=== PATIENT | male | born 2000 | race Caucasian/White ===

== ENCOUNTER 2020-12-25 11:06 | Day surgery (SDC) | payer OTHER ==
[~2020-12-25] VITALS: Ht 177.8 cm; Wt 104.2 kg
[~2020-12-25 11:06] MED LIST: LIDOCAINE 1% MDV 20ML VIAL SQ PRN; LIDOCAINE 2% 100MG/5ML SDV (FOR ANES.) As Ordered ONE; LR 1,000 ML IV ONE; MIDAZOLAM INJ 2MG/2ML VIAL (J2250 PER 1MG) As Ordered ONE; ONDANSETRON 4MG/2ML VIAL As Ordered ONE; ROCURONIUM BROMIDE 50 MG/5 ML VIAL As Ordered ONE; ceFAZolin SOD 2 GM in IV 1 EA IV ONE; dexameTHASONE 4 MG/ML 1ML VIAL (J1100 PER 1MG) As Ordered ONE; fentaNYL 250 MCG/5 ML INJECTION (J3010) As Ordered ONE; propofoL 200 MG/20 ML VIAL As Ordered ONE
[2020-12-25 11:38] LABS: HEMATOCRIT 48.3 % (42.0-52.0); HEMOGLOBIN 15.8 g/dl (13.5-17.5); MEAN CORPUSCULAR HEMOGLOBIN 28.3 pg (27.0-33.0); MEAN CORPUSCULAR HGB CONC 32.7 g/dl (32.0-36.5); MEAN CORPUSCULAR VOLUME 86.6 fl (80.0-96.0); PLATELET COUNT, AUTOMATED 266 10^3/uL (150-450); RED BLOOD COUNT 5.58 10^6/uL (4.30-6.10); WHITE BLOOD COUNT 6.8 10^3/uL (4.0-10.0)
[2020-12-25] MEDS ORDERED: BUPIVACAINE LIPOSOME/PF 1.3% 20ML VIAL (13.3MG/ML)(EXPAREL)(C9290 PER1MG) As Ordered ONE (14:25)
[2020-12-25] MEDS ORDERED: GENTAMICIN SULF 80MG/2ML VIAL As Ordered ONE (14:25)
[2020-12-25] MEDS ORDERED: ROCURONIUM BROMIDE 50 MG/5 ML VIAL As Ordered ONE ×2 (15:31→18:27)
[2020-12-25] MEDS ORDERED: ePHEDrine SULFATE 25 MG/5 ML(5MG/ML) SYRINGE As Ordered ONE (15:46)
[2020-12-25] MEDS ORDERED: ACETAMINOPHEN 1000MG 100ML IV BTL (OFIRMEV) (J0131 PER 10MG) As Ordered ONE (15:48)
[2020-12-25] MEDS ORDERED: HYDROmorphone HCL 2 MG/ML 1ML VIAL As Ordered ONE (15:48)
[2020-12-25] MEDS ORDERED: SUGAMMADEX SODIUM 500 MG/5 ML VIAL (BRIDION) As Ordered ONE ×2 (15:48→18:27)
--- NOTE | 2020-12-25 18:10 | POST-OPPD ---
Postoperative Procedure Note Date Of Procedure: Dec 25, 2020 PREOPERATIVE DIAGNOSIS: Panniculitis POSTOPERATIVE DIAGNOSIS: same PROCEDURE: Extended panniculectomy SURGEON: Dr Abarca ANESTHESIA: General ESTIMATED BLOOD LOSS: 150 cc FINDINGS: Pannus SPECIMENS: Pannus 1801 gm COMPLICATIONS: none REPLACED: none DRAINS: 10 mm ELROY x 2 POSTOPERATIVE CONDITION: stable CHACHA ABARCA DO Dec 25, 2020 18:10
--- NOTE | 2020-12-25 18:10 | ROOPDOC ---
[facility] Report Of Operation Report of Operation DATE OF PROCEDURE: 12/25/20 PREOPERATIVE DIAGNOSIS: Panniculitis POSTOPERATIVE DIAGNOSIS: same PROCEDURE: Extended panniculectomy SURGEON: Dr Abarca ANESTHESIA: General ESTIMATED BLOOD LOSS: 150 cc FINDINGS: Pannus SPECIMENS: Pannus 1801 gm COMPLICATIONS: none REPLACED: none DRAINS: 10 mm ELROY x 2 POSTOPERATIVE CONDITION: stable DESCRIPTION OF PROCEDURE: Procedure: This is a 20-year-old male status post significant weight loss. Patient is an active duty soldier. Patient has excessive pannus above and mostly below the umbilicus with large mons pubis ptosis. Patient is scheduled for extended panniculectomy. Risks benefits and alternatives discussed with the patient in de tails. Informed consent confirmed and preoperative holding area. Patient was marked in upright position. He was brought into the operating room, placed in supine position, preoperative antibiotics given, sequential stockings placed in the lower calves, and then general anesthesia is induced. Fully introduced in the bladder without any difficulties with yellow clear urine present. He was prepped and draped in the usual sterile fashion. Lower abdominal incision was designed 7 cm above the penis base. Incision carried out with 10 blade. Careful sharp dissection with electrocautery and peek cautery was done until the fascia of rectus muscle is identified. Rectus muscle is in very good condition no diathesis present. Vessels were identified throughout and either cauterized or suture ligated for hemostasis control. Infraumbilical flap was divided in the middle to aid the dissection. We continued our dissection until umbilicus was encountered. Rhomboid incision made around the umbilicus and dissection continued xiphoid process superiorly and costal edges laterally. Patient placed on placed in the reflex position and excess tissue was measured and scored. Then it was resected using electrocautery. Total weight of the pannus 1801 g. Careful hemostasis was assured. The wound is irrigated gentamicin irrigation. [place] Tisseel hemostatic agent applied thought the abdomen, 2 ml. 10 cc of Exparel infiltrated in the rectus muscle. Skin flaps were realigned and was started all closure with deep sutures of 0 Vicryl realigning the pubis and closing the lower abdominal incision. 3 mL Monocryl V lock suture used for subcutaneous closure followed by 3-0 Monocryl interrupted sutures as well. Two 10 mm [place]-Tanner drains were placed throughout lower abdominal incision. New opening was created for the umbilical stump using electrocautery. The umbilicus was brought into view and sutured in place with interrupted 3-Monocryl sutures and 5-0 plain gut sutures in the running fashion. Additional 10 cc of Exparel injected along the lower abdominal incision. Additional staplers were placed for appropriate protection of incision. Prinio dressing applied to lower abdominal incision, Xeroform to umbilicus, and bulky dressing throughout. Abdominal binder applied. Patient extubated in the operating room without any difficulties and transferred to recovery room in stable condition. CHACHA ABARCA DO Dec 25, 2020 18:10
[2020-12-25] MEDS ORDERED: MORPHINE 4 MG/ML 1ML VIAL/SYRINGE (J2270) IV PRN (18:15)
[2020-12-25] MEDS ORDERED: ONDANSETRON 4MG/2ML VIAL IV PRN ×2 (18:15→19:05)
[2020-12-25] MEDS ORDERED: ACETAMINOPHEN TAB 650MG DOSE (2X325MG) PO PRN (18:15)
[2020-12-25] MEDS ORDERED: KETOROLAC 60MG 2ML VIAL As Ordered ONE (18:27)
[2020-12-25] MEDS ORDERED: fentaNYL 100 MCG/2 ML INJECTION (J3010) As Ordered ONE (18:58)
[2020-12-25] MEDS ORDERED: LR 1,000 ML IV SCH (19:05)
[2020-12-25] MEDS ORDERED: oxyCODONE 5MG TAB PO PRN (19:05)
[2020-12-25] MEDS ORDERED: fentaNYL 100 MCG/2 ML INJECTION (J3010) IV PRN (19:05)
[2020-12-25 20:00] VITALS: BP 123/67
[2020-12-25 20:30] VITALS: BP 131/63
[2020-12-25 21:00] VITALS: BP 127/63
[2020-12-25 22:00] VITALS: BP 124/58
[2020-12-25] MEDS: ceFAZolin SOD 1 GM in D5W MINI-BAG PLUS 50 ML IV SCH (22:15)
[2020-12-25] MEDS: PERCOCET 5MG/325MG TAB PO PRN (22:15)
[2020-12-25 23:00] VITALS: BP 124/58
[2020-12-26] VITALS: BP 124/58
[2020-12-26] MEDS: PERCOCET 5MG/325MG TAB PO PRN ×3 (04:40→14:52)
[2020-12-26 06:00] VITALS: BP 121/56
[2020-12-26] MEDS: ceFAZolin SOD 1 GM in D5W MINI-BAG PLUS 50 ML IV SCH (06:38)
[2020-12-26] MEDS: LR 1,000 ML IV SCH ×2 (08:24→08:25)
[2020-12-26 10:00] VITALS: BP 106/50
--- NOTE | 2020-12-26 10:32 | IPNPDOC ---
Subjective General Date Seen: Dec 26, 2020 Subject Chief Complaint/History The patient is a 20-year-old male admitted with a reason for visit of Panniculitis. Patient status post extended panniculectomy postop day 1. He is doing well, ambulated to the bathroom. Pain controlled with Percocet. Tolerating regular diet. Current Medications Current Medications Current Medications Medications (Trade) Dose Ordered Sig/Santino Route PRN Reason Start Time Stop Time Status Last Admin Dose Admin Acetaminophen (Tylenol Tab) 650 mg Q6H PRN PO MILD PAIN (PS 1-4) 12/25/20 18:15 Cefazolin Sodium 1 gm/Dextrose 50 ml @ 100 mls/hr Q8H IV 12/25/20 23:00 12/26/20 06:38 Fentanyl Citrate (Sublimaze) 25 mcg Q5MP PRN IV PAIN LEVEL 8-10 12/25/20 19:05 12/25/20 21:05 DC 12/25/20 19:02 Lactated Ringer's 1,000 ml @ 75 mls/hr [id number] IV 12/25/20 18:15 12/26/20 08:25 Lactated Ringer's 1,000 ml @ 80 mls/hr [id number] IV 12/25/20 19:05 12/25/20 21:05 DC Lidocaine HCl (LIDOCAINE 1% MDV 20ml) 0.1 ml ONCE PRN SQ DISCOMFORT BEFORE IV START 12/25/20 06:00 Morphine Sulfate (Morphine Sulfate Inj) 4 mg Q4HP PRN IV SEVERE PAIN (PS 8-10) 12/25/20 18:15 Ondansetron HCl (ZOFRAN INJection) 4 mg Q4H PRN IV NAUSEA OR VOMITING 12/25/20 18:15 Ondansetron HCl (ZOFRAN INJection) 4 mg Q4HP PRN IV NAUSEA OR VOMITING 12/25/20 19:05 12/25/20 21:05 DC 12/25/20 19:21 Oxycodone HCl (Roxicodone, Oxyir) 5 mg ASDIRECTED PRN PO PAIN LEVEL 1-4 12/25/20 19:05 12/25/20 21:05 DC 12/25/20 19:21 Oxycodone/ Acetaminophen (Percocet 5mg/ 325mg Tablet) 2 tab Q4HP PRN PO MODERATE PAIN (PS 5-7) 12/25/20 18:15 12/26/20 04:40 Allergies Coded Allergies: No Known Allergies (Unverified , 12/18/20) Objective Physical Examination Examination GENERAL APPEARANCE:Patient seen, laying in bed, awake, alert, and oriented. Comfortable, in no acute distress. SKIN: Warm and moist. NECK: Supple, no thyromegaly. No obvious jugular venous distention. LUNGS: Clear to auscultation bilaterally. No wheezing appreciated. HEART: No chest wall abnormalities. Regular rate and rhythm with no murmurs appreciated. ABDOMEN: Abdomen is soft, non-tender, non-distended. Incision intact. Umbilicus viable. ELROY drains with serosanguinous drainage. 130R/85L cc/24 hr each drain. EXTREMITIES: No edema identified. No calf tenderness. Vital Signs Vital Signs Date Time Temp Pulse Resp B/P (MAP) Pulse Ox O2 Delivery O2 Flow Rate FiO2 12/26/20 06:00 98.8 64 20 121/56 (77) 98 Room Air 12/25/20 20:00 2.0 I&Os I&O- Last 24 Hours up to 6 AM 12/26/20 06:00 Intake Total 2650 ml Output Total 1543 ml Balance 1107 ml Laboratory Data Labs 24H Laboratory Tests 2 12/25/20 11:23: Nucleated Red Blood Cells % (auto) 0.0 CBC/BMP Laboratory Tests 12/25/20 11:23 Impression Status post extended panniculectomy postop day 1. Dressings changed today. Instructions given to the patient. Stable for discharge. Follow-up with plastic surgery after discharge. Plan / VTE VTE Prophylaxis Ordered?: Yes CHACHA ABARCA DO Dec 26, 2020 10:32
[2020-12-26] MEDS ORDERED: TRAM50TA2 PO (10:48)
[2020-12-26 14:00] VITALS: BP 120/66
== END 2020-12-26 15:25 | disposition home or self-care (01) ==
LOC: M SDC 11:06 → M MS5PR 19:45 → M SDC 12-26 15:25
PROVIDERS: ATTEND Plastic Surgery Surgery of the Hand
DX: M54.07 Panniculitis affecting regions of neck and back, lumbosacral region (principal)
CPT/HCPCS: 15830; 15847; 36415; 85027; 88300; 96365; 96366; C9290; J0131; J0690; J1100; J1170; J1580; J1885; J2250; J2405; J3010

== ENCOUNTER 2021-01-01 14:06 | Emergency (ER) | payer OTHER ==
[~2021-01-01] VITALS: Ht 177.8 cm; Wt 105.5 kg
[~2021-01-01 14:06] MED LIST changes: -LIDOCAINE 1% MDV 20ML VIAL SQ PRN; -LIDOCAINE 2% 100MG/5ML SDV (FOR ANES.) As Ordered ONE; -LR 1,000 ML IV ONE; -MIDAZOLAM INJ 2MG/2ML VIAL (J2250 PER 1MG) As Ordered ONE; -ONDANSETRON 4MG/2ML VIAL As Ordered ONE; -ROCURONIUM BROMIDE 50 MG/5 ML VIAL As Ordered ONE; +TRAM50TA2 PO; -ceFAZolin SOD 2 GM in IV 1 EA IV ONE; -dexameTHASONE 4 MG/ML 1ML VIAL (J1100 PER 1MG) As Ordered ONE; -fentaNYL 250 MCG/5 ML INJECTION (J3010) As Ordered ONE; -propofoL 200 MG/20 ML VIAL As Ordered ONE
[2021-01-01] MEDS ORDERED: PERCOCET 5MG/325MG TAB PO ONE (16:35)
[2021-01-01] MEDS ORDERED: traMADol 50 MG TAB PO ONE (16:45)
[2021-01-01 17:19] LABS: BASO % 0.1 % (0.0-1.0); EOS # 0.2 10^3/uL (0.0-0.5); HEMATOCRIT 39.3 % (42.0-52.0); HEMOGLOBIN 12.7 g/dl (13.5-17.5); LYMPH # 1.6 10^3/uL (1.5-5.0); LYMPH % 19.9 % (24.0-44.0); MEAN CORPUSCULAR HEMOGLOBIN 28.2 pg (27.0-33.0); MEAN CORPUSCULAR HGB CONC 32.3 g/dl (32.0-36.5); MEAN CORPUSCULAR VOLUME 87.3 fl (80.0-96.0); MONO # 0.7 10^3/uL (0.0-0.8); MONO % 8.6 % (2.0-8.0); NEUTROPHILS # 5.4 10^3/uL (1.5-8.5); NEUTROPHILS % 67.9 % (36.0-66.0); PLATELET COUNT, AUTOMATED 254 10^3/uL (150-450); WHITE BLOOD COUNT 7.9 10^3/uL (4.0-10.0)
--- OUTSIDE RECORDS SUMMARY | 2021-01-01 17:21 | CCD | Continuity of Care Document ---
Author Author Adolfo ABARCA CHACHA DO Organization Unknown Address [address] [place] [address] Phone [phone] Care Team Providers Care Inspectors And Regulatory Officers Name Role Phone Dominique Carrasco Avery DO AUTM Unavailable Maicol Scott M.D. AUTM Unavailable Pattie AUTM [phone] Problems Description No Information Available Social History Type Date Description Comments Sex Male ETOH Use Occasionally consumes alcohol Tobacco Use Start: Unknown Denies Smoking Smoking Status Reviewed: 10/24/20 Denies Smoking Allergies and adverse reactions Description No Known Drug Allergies Medications Description No Active Medications Immunizations Description No Information Available Vital Signs Date Vital Result Comment 12/31/2020 2:57pm BP Systolic 126 mmHg BP Diastolic 78 mmHg Heart Rate 84 /min Respiratory Rate 16 /min Body Temperature 97.2 F Height 70 inches 5'10" [place] Body Weight 166 lb 12/10/2020 12:58pm BP Systolic 140 mmHg BP Diastolic 90 mmHg Heart Rate 80 /min Respiratory Rate 14 /min Body Temperature 98.2 F Height 70 inches 5'10" Weight 236.00 lb BMI (Body Mass Index) 33.9 kg/m2 [place] Body Weight 166 lb Weight 107.050 kg BSA (Body Surface Area) 2.24 m2 Results Test Acquired Date Facility Test Result H/L Range Note Laboratory test finding 12/25/2020 [facility] Main Lab [address] [place] [address] [phone] Pathology Request For Service (SEE NOTE) 1 Complete Blood Count 12/25/2020 [facility] Main Lab [address] [place] [address] [phone] White Blood Count 6.8 10 Normal 4.0-10.0 Red Blood Count 5.58 10 Normal 4.30-6.10 Hemoglobin 15.8 g/dL Normal 13.5-17.5 Hematocrit 48.3 % Normal 42.0-52.0 Mean Corpuscular Volume 86.6 fl Normal 80.0-96.0 Mean Corpuscular Hemoglobin 28.3 pg Normal 27.0-33.0 Mean Corpuscular HGB Conc 32.7 g/dL Normal 32.0-36.5 Red Cell Distribution Width 12.7 % Normal 11.5-14.5 Platelet Count, Automated 266 10 Normal 150-450 Nucleated Red Blood Cell % 0.0 % Normal 0-0 1 FINAL DIAGNOSIS Pannus (1801 grams), panniculectomy: Benign skin and adipose tissue (gross examination only). 12/27/2020 - 811 CLINICAL DIAGNOSIS Panniculitis 12/26/20201400 GROSS DIAGNOSIS Received in formalin labeled "pannus (right, left, midline and umbilical tissue) total weight 1,801 grams" and consists of fragments of skin with adipose tissue 32 x 30 x 8 cm. For gross only. -OA 12/26/2020 - 1400 Signed SALLY MALIK MD 12/27/2020 0813 Procedures Date Code Description Status 12/25/2020 33837 Excision Excessive Skin And Subc utaneous Tissue Abdomen Completed 10/24/2020 08508 Office/Outpatient New Moderate M DM 45-59 Minutes Completed Medical Devices Description No Information Available Encounters Type Date Location Provider Dx Diagnosis Office Visit 10/24/2020 9:15a [facility] Chacha Abarca, DO M54.07 Panniculitis affecting regions of neck/bk, lumbosacr region L98.7 Excessive and redundant skin and subcutaneous tissue Assessments Date Code Description Provider 12/31/2020 L98.7 Excessive and redundant skin and subcutaneous tissue Chacha Philip, DO 12/31/2020 M54.07 Panniculitis affecti ng regions of neck and back, lumbosacral region Chacha Philip, DO 12/25/2020 L98.7 Excessive and redundant skin and subcutaneous tissue Chacha Philip, DO 12/25/2020 M54.07 Panniculitis affecti ng regions of neck and back, lumbosacral region Chacha Philip, DO 12/10/2020 M54.07 Panniculitis affecti ng regions of neck and back, lumbosacral region Chacha Abarca, DO 12/10/2020 L98.7 Excessive and redundant skin and subcutaneous tissue Chacha Abarca, DO 12/10/2020 Z01.818 Encounter for other preprocedura l examination Chacha Abarca, DO 10/24/2020 M54.07 Panniculitis affecti ng regions of neck and back, lumbosacral region Chacha Abarca, DO 10/24/2020 L98.7 Excessive and redundant skin and subcutaneous tissue Chacha Abarca, DO Plan of Treatment Future Appointment(s):* 01/02/2021 11:15 am - Chacha Abarca DO at [facility] Functional Status Description No Information Available Mental Status Description No Information Available Referrals Refer to Dr Reason for Referral Status Appt Date Chacha Abarca D.O. PANNICULECTOMY Scheduled 10/24/2020 [facility] [address] [place] [address], [place] [address] [phone]
--- OUTSIDE RECORDS SUMMARY | 2021-01-01 17:21 | CCD | Continuity of Care Document ---
Author Author Adolfo ABARCA DO Organization Unknown Address [address] [place] [address] Phone [phone] Care Team Providers Care Pedicurist Name Role Phone Luna Dominique Avery MORENO AUTM Unavailable Maicol Scott MD Unavailable Problems Description No Information Available Social History Type Date Description Comments Sex Male ETOH Use Occasionally consumes alcohol Tobacco Use Start: Unknown Denies Smoking Allergies, Adverse Reactions, Alerts Description No Known Drug Allergies Medications Description No Active Medications Immunizations Description No Information Available Vital Signs Date Vital Result Comment 10/24/2020 8:59am BP Systolic 130 mmHg BP Diastolic 80 mmHg Heart Rate 68 /min Respiratory Rate 14 /min Body Temperature 97.6 F Height 70 inches 5'10" Weight 226.00 lb BMI (Body Mass Index) 32.4 kg/m2 [place] Body Weight 166 lb Weight 102.514 kg BSA (Body Surface Area) 2.20 m2 Results Description No Information Available Procedures Description No Information Available Medical Devices Description No Information Available Encounters Description No Information Available Assessments Description No Information Available Plan of Treatment 10/24/2020 - Zeenat Abarca DO* * New Medication:* No Active Medications Functional Status Description No Information Available Mental Status Description No Information Available Referrals Refer to Reason for Referral Status Appt Date Zeenat Abarca D.O. PANNICULECTOMY Scheduled 10/24/2020 [facility] [address] [place] [address], [place] [id number] [phone]
--- OUTSIDE RECORDS SUMMARY | 2021-01-01 17:21 | CCD | Continuity of Care Document ---
Author Author Adolfo ABARCA CHACHA DO Organization Unknown Address [address] [place] [address] Phone [phone] Care Team Providers Care Name Plate Stamping Machine Operator Name Role Phone Dominique Carrasco Avery DO AUTM Unavailable Maicol Scott M.D. AUTM Unavailable Pattie AUTM [phone] Problems Description No Information Available Social History [...] Temperature 97.2 F Height 70 inches 5'10" [place] Body Weight 166 lb 12/10/2020 12:58pm BP Systolic 140 mmHg BP Diastolic 90 mmHg Heart Rate 80 /min Respiratory Rate 14 /min Body Temperature 98.2 F Height 70 inches 5'10" Weight 236.00 lb BMI (Body Mass Index) 33.9 kg/m2 [place] Body Weight 166 lb Weight 107.050 kg BSA (Body Surface Area) 2.24 m2 Results Test Acquired Date Facility Test Result H/L Range Note Laboratory test finding 12/25/2020 [facility] Main Lab [address] [place] [address] [phone] Pathology Request For Service (SEE NOTE) 1 Complete Blood Count 12/25/2020 [facility] Main Lab [address] [place] [address] [phone] White Blood Count 6.8 10 Normal 4.0-10.0 [...] 0813 Procedures Date Code Description Status 12/25/2020 71690 Excision Excessive Skin And Subc utaneous Tissue Abdomen Completed 10/24/2020 37444 Office/Outpatient New Moderate M DM 45-59 Minutes Completed Medical Devices Description No Information Available Encounters Type Date Location Provider Dx Diagnosis Office Visit 10/24/2020 9:15a [facility] Chacha Abarca, DO M54.07 Panniculitis [...] 11:15 am - Chacha Abarca DO at [facility] Functional Status Description No Information Available Mental Status Description No Information Available Referrals Refer to Dr Reason for Referral Status Appt Date Chacha Abarca D.O. PANNICULECTOMY Scheduled 10/24/2020 [facility] [address] [place] [address], [place] [address] [phone]
--- OUTSIDE RECORDS SUMMARY | 2021-01-01 17:21 | CCD ---
Author Author [facility] Organization [facility] Address Unknown Phone Unavailable Care Team Providers Care Machine Leather Trimmer Name Role Phone RIMA, E CHACHA DO Unavailable Unavailable RIMA, E CHACHA DO Unavailable Unavailable RIMA, E CHACHA DO Unavailable Unavailable RIMA, E CHACHA DO Unavailable Unavailable RIMA, E CHACHA DO Unavailable Unavailable RIMA, E CHACHA DO Unavailable Unavailable RIMA, E CHACHA DO Unavailable Unavailable RIMA, E CHACHA DO Unavailable Unavailable RIMA, E CHACHA DO Unavailable Unavailable RIMA, E CHACHA DO Unavailable Unavailable RIMA, E CHACHA DO Unavailable Unavailable RIMA, E CHACHA DO Unavailable Unavailable RIMA, E CHACHA DO Unavailable Unavailable RIMA, E CHACHA DO Unavailable Unavailable RIMA, E CHACHA DO Unavailable Unavailable RIMA, E CHACHA DO Unavailable Unavailable RIMA, E CHACHA DO Unavailable Unavailable RIMA, E CHACHA DO Unavailable Unavailable RIMA, E CHACHA DO Unavailable Unavailable RIMA, E CHACHA DO Unavailable Unavailable RIMA, E CHACHA DO Unavailable Unavailable RIMA, E CHACHA DO Unavailable Unavailable Re-disclosure Warning The records that you are about to access may contain information from federally-assisted alcohol or drug abuse programs. If such information is present, then the following federally mandated warning applies: This information has been disclosed to you from records protected by federal confidentiality rules (42 CFR part 2). The federal rules prohibit you from making any further disclosure of this information unless further disclosure is expressly permitted by the written consent of the person to whom it pertains or as otherwise permitted by 42 CFR part 2. A general authorization for the release of medical or other information is NOT sufficient for this purpose. The Federal rules restrict any use of the information to criminally investigate or prosecute any alcohol or drug abuse patient.The records that you are about to access may contain highly sensitive health information, the redisclosure of which is protected by Article 27-F of the [facility] Public Health law. If you continue you may have access to information: Regarding HIV / AIDS; Provided by facilities licensed or operated by the [facility] Office of Mental Health; or Provided by the [facility] Office for People With Developmental Disabilities. If such information is present, then the following [facility] mandated warning applies: This information has been disclosed to you from confidential records which are protected by state law. State law prohibits you from making any further disclosure of this information without the specific written consent of the person to whom it pertains, or as otherwise permitted by law. Any unauthorized further disclosure in violation of state law may result in a fine or fpc sentence or both. A general authorization for the release of medical or other information is NOT sufficient authorization for further disc losure. Encounters Encounter Providers Location Date Indications Data Source(s ) Outpatient Attender: CHACHA Pereira/Lacey/Jimbo/Jose Guadalupe piedra 10/24/2020 09:15:00 AM EDT [facility] ([facility], ) Immunizations Vaccine Date Status Description Data Source(s) COVID-19 VACCINE Pfizer 05/16/2020 12:00:00 AM EDT completed [facility] Vaccine Series Complete: NOThis Data was Submitted to [facility] Via [employer]. Medications No Information Insurance Providers Payer name Policy type / Coverage type Policy ID Covered republican ID Covered republican's relationship to martin Policy Martin Plan Information [facility] ACTIVE DUTY [id number] SP [id number] [employer]Y [id number] SP [id number] ACTIVE DUTY [id number] SP [id number] Problems, Conditions, and Diagnoses No Information Surgeries/Procedures Procedure Description Date Indications Data Source(s) Excision Excessive Skin And Subcutaneous Tissue Abdomen 12/25/2020 12:00:00 AM EST [facility] ([facility], ) OFFICE OUTPATIENT NEW 45 MINUTES 10/24/2020 12:00:00 A M EDT [facility] ([facility], ) Results ID Date Data Source [id number] 12/25/2020 06:10:[address] [facility] ([facility]) Name Value Range Interpretation Code Description Data [facility] rce(s) Supporting Document(s) Surgical pathology study Laboratory test result [facility] ([facility]) FINAL DIAGNOSIS Pannus (1801 grams), panniculectomy: Benign skin and adipose tissue (gross examination only). 12/27/2020811 CLINICAL DIAGNOSIS Panniculitis 12/26/20201400 GROSS DIAGNOSIS Received in formalin labeled "pannus (right, left, midline and umbilical tissue) total weight 1,801 grams" and consists of fragments of skin with adipose tissue 32 x 30 x 8 cm. For gross only. -OA 12/26/20201400 Signed SALLY MALIK MD 12/27/2020 0813 ID Date Data Source [id number] 12/25/2020 11:23:[address] [facility] ([facility]) Name Value Range Interpretation Code Description Data Maddy rce(s) Supporting Document(s) White Blood Count 6.8 10 4.0-10.0 Normal (applies to non-numeri c results) [facility] ([facility]) Red Blood Count 5.58 10 4.30-6.10 Normal (applies to non-numeric results) [facility]) Hemoglobin 15.8 g/dL 13.5-17.5 Normal (applies to non-numeric resul ts) [facility]) Hematocrit 48.3 % 42.0-52.0 Normal (applies to non-numeric resul ts) [facility]) Mean Corpuscular Volume 86.6 fl 80.0-96.0 Normal ( applies to non-numeric results) [facility]) Mean Corpuscular HGB Conc 32.7 g/dL 32.0-36.5 Normal (applies to non-numeric results) [facility]) Mean Corpuscular Hemoglobin 28.3 pg 27.0-33.0 Norm al (applies to non-numeric results) [facility] ([facility]) Red Cell Distribution Width 12.7 % 11.5-14.5 Norm al (applies to non-numeric results) [facility] ([facility]) Platelet Count, Automated 266 10 150-450 Normal (applies to non-numeric results) [facility] ([facility]) Nucleated Red Blood Cell % 0.0 % 0-0 Normal (applies to n on-numeric results) [facility] ([facility]) Procedure Social History No Information Vital Signs ID Date Data Source UNK Name Value Range Interpretation Code Description Data Source(s) Respiratory rate 16 /min 16 /min [facility] ( [facility]) Systolic blood pressure 126 mm[Hg] 126 mm[Hg] [facility] ([facility]) Diastolic blood pressure 78 mm[Hg] 78 mm[Hg] [facility] ([facility]) Heart rate 84 /min 84 /min [facility] ([facility]) Body temperature 97.2 [degF] 97.2 [degF] [facility] ([facility]) Body height 70 [in_i] 70 [in_i] [facility] ([facility]) 5'10" [place] body weight 166 [lb_av] 166 [lb_av] [facility] ([facility]) Systolic blood pressure 140 mm[Hg] 140 mm[Hg] [facility] ([facility]) Diastolic blood pressure 90 mm[Hg] 90 mm[Hg] [facility] ([facility]) Heart rate 80 /min 80 /min [facility] ([facility]) Respiratory rate 14 /min 14 /min [facility] ( [facility]) Body temperature 98.2 [degF] 98.2 [degF] [facility] ([facility]) Body height 70 [in_i] 70 [in_i] [facility] ([facility]) 5'10" Body weight 236.00 [lb_av] 236.00 [lb_av] [facility] ([facility]) Body mass index (BMI) [Ratio] 33.9 kg/m2 33.9 k g/m2 [facility] ([facility]) [place] body weight 166 [lb_av] 166 [lb_av] [facility] T ([facility]) Body weight 107.[address] [facility] ([facility]) Body surface area Derived from formula 2.[address] [facility] ([facility]) Body mass index (BMI) [Ratio] 32.4 kg/m2 32.4 k g/m2 [facility] ([facility]) [place] body weight 166 [lb_av] 166 [lb_av] [facility] ([facility]) Heart rate 68 /min 68 /min [facility] ([facility]) Systolic blood pressure 130 mm[Hg] 130 mm[Hg] [facility]) Diastolic blood pressure 80 mm[Hg] 80 mm[Hg] [facility] ([facility]) Respiratory rate 14 /min 14 /min [facility] ( [facility]) Body temperature 97.6 [degF] 97.6 [degF] [facility] ([facility]) Body height 70 [in_i] 70 [in_i] [facility] ([facility]) 5'10" Body weight 226.00 [lb_av] 226.00 [lb_av] [facility] T ([facility]) Body weight 102.[address] [facility] ([facility]) Body surface area Derived from formula 2.[address] [facility] ([facility])
--- OUTSIDE RECORDS SUMMARY | 2021-01-01 17:21 | CCD | Continuity of Care Document ---
Author Author Adolfo ABARCA CHACHA DO Organization Unknown Address [address] [place] [address] Phone [phone] Care Team Providers Care School Coordinator Name Role Phone Dominique Carrasco Avery DO AUTM Unavailable Maicol Scott M.D. AUTM Unavailable Pattie AUTM [phone] Problems Description No Information Available Social History [...] Temperature 97.2 F Height 70 inches 5'10" [place] Body Weight 166 lb 12/10/2020 12:58pm BP Systolic 140 mmHg BP Diastolic 90 mmHg Heart Rate 80 /min Respiratory Rate 14 /min Body Temperature 98.2 F Height 70 inches 5'10" Weight 236.00 lb BMI (Body Mass Index) 33.9 kg/m2 [place] Body Weight 166 lb Weight 107.050 kg BSA (Body Surface Area) 2.24 m2 Results Test Acquired Date Facility Test Result H/L Range Note Laboratory test finding 12/25/2020 [facility] Main Lab [address] [place] [address] [phone] Pathology Request For Service (SEE NOTE) 1 Complete Blood Count 12/25/2020 [facility] Main Lab [address] [place] [address] [phone] White Blood Count 6.8 10 Normal 4.0-10.0 [...] 0813 Procedures Date Code Description Status 12/25/2020 15012 Excision Excessive Skin And Subc utaneous Tissue Abdomen Completed 10/24/2020 25642 Office/Outpatient New Moderate M DM 45-59 Minutes Completed Medical Devices Description No Information Available Encounters Type Date Location Provider Dx Diagnosis Office Visit 10/24/2020 9:15a [facility] Chacha Abarca, DO M54.07 [...] 11:15 am - Chacha Abarca DO at [facility] Functional Status Description No Information Available Mental Status Description No Information Available Referrals Refer to Dr Reason for Referral Status Appt Date Chacha Abarca D.O. PANNICULECTOMY Scheduled 10/24/2020 [facility] [address] [place] [address], [place] [address] [phone]
--- OUTSIDE RECORDS SUMMARY | 2021-01-01 17:21 | CCD | Continuity of Care Document ---
Author Author Adolfo ABARCA DO Organization Unknown Address [address] [place] [address] Phone [phone] Care Team Providers Care Rn Urgent Care Name Role Phone Dominique Carrasco DO AUTM Unavailable Maicol Scott MD AUTM Unavailable Pattie AUTM [phone] Problems Description No Information Available Social History Type Date Description Comments Sex Male ETOH Use Occasionally consumes alcohol Tobacco Use Start: Unknown Denies Smoking Smoking Status Reviewed: 10/24/20 Denies Smoking Allergies and adverse reactions Description No Known Drug Allergies Medications Description No Active Medications Immunizations Description No Information Available Vital Signs Date Vital Result Comment 12/10/2020 12:58pm BP Systolic 140 mmHg BP Diastolic 90 mmHg Heart Rate 80 /min Respiratory Rate 14 /min Body Temperature 98.2 F Height 70 inches 5'10" Weight 236.00 lb BMI (Body Mass Index) 33.9 kg/m2 [place] Body Weight 166 lb Weight 107.050 kg BSA (Body Surface Area) 2.24 m2 10/24/2020 8:59am BP Systolic 130 mmHg BP Diastolic 80 mmHg Heart Rate 68 /min Respiratory Rate 14 /min Body Temperature 97.6 F Height 70 inches 5'10" Weight 226.00 lb BMI (Body Mass Index) 32.4 kg/m2 [place] Body Weight 166 lb Weight 102.514 kg BSA (Body Surface Area) 2.20 m2 Results Description No Information Available Procedures Date Code Description Status 10/24/2020 12046 Office/Outpatient New Moderate M DM 45-59 Minutes Completed Medical Devices Description No Information Available Encounters Type Date Location Provider Dx Diagnosis Office Visit 10/24/2020 9:15a [facility] Zeenat Abarca DO M54.07 Panniculitis affecting regions of neck/bk, lumbosacr region L98.7 Excessive and redundant skin and subcutaneous tissue Assessments Date Code Description Provider 10/24/2020 M54.07 Panniculitis affecti ng regions of neck and back, lumbosacral region Zeenat Abarca DO 10/24/2020 L98.7 Excessive and redundant skin and subcutaneous tissue Zeenat Abarca DO Plan of Treatment Future Appointment(s):* 12/25/2020 11:15 am - Zeenat Abarca DO at [facility] * 12/31/2020 11:30 am - Zeenat Abarca DO at [facility] Functional Status Description No Information Available Mental Status Description No Information Available Referrals Refer to Reason for Referral Status Appt Date Zeenat Abarca D.O. PANNICULECTOMY Scheduled 10/24/2020 [facility] [address] [place] [address], [place] [address] [phone]
--- OUTSIDE RECORDS SUMMARY | 2021-01-01 17:21 | CCD | Continuity of Care Document ---
Author Author Adolfo ABARCA CHACHA DO Organization Unknown Address [address] [place] [address] Phone [phone] Care Team Providers Care Rehab/Pre Vocational Counselor Name Role Phone Dominique Carrasco Avery DO AUTM Unavailable Maicol Scott M.D. AUTM Unavailable Pattie AUTM [phone] Problems Description No Information Available Social History [...] Temperature 97.2 F Height 70 inches 5'10" [place] Body Weight 166 lb 12/10/2020 12:58pm BP Systolic 140 mmHg BP Diastolic 90 mmHg Heart Rate 80 /min Respiratory Rate 14 /min Body Temperature 98.2 F Height 70 inches 5'10" Weight 236.00 lb BMI (Body Mass Index) 33.9 kg/m2 [place] Body Weight 166 lb Weight 107.050 kg BSA (Body Surface Area) 2.24 m2 Results Test Acquired Date Facility Test Result H/L Range Note Laboratory test finding 12/25/2020 [facility] Main Lab [address] [place] [address] [phone] Pathology Request For Service (SEE NOTE) 1 Complete Blood Count 12/25/2020 [facility] Main Lab [address] [place] [address] [phone] White Blood Count 6.8 10 Normal 4.0-10.0 [...] 0813 Procedures Date Code Description Status 12/25/2020 03514 Excision Excessive Skin And Subc utaneous Tissue Abdomen Completed 10/24/2020 12922 Office/Outpatient New Moderate M DM 45-59 Minutes Completed Medical Devices Description No Information Available Encounters Type Date Location Provider Dx Diagnosis Office Visit 10/24/2020 9:15a [facility] Chacha Abarca, DO M54.07 [...] 11:15 am - Chacha Abarca DO at [facility] Surgery Functional Status Description No Information Available Mental Status Description No Information Available Referrals Refer to Dr Reason for Referral Status Appt Date Chacha Abarca D.O. PANNICULECTOMY Scheduled 10/24/2020 [facility] [address] [place] [address], [place] [address] [phone]
--- OUTSIDE RECORDS SUMMARY | 2021-01-01 17:21 | CCD | Continuity of Care Document ---
Author Author Adolfo ABARCA DO Organization Unknown Address [address] [place] [address] Phone [phone] Care Team Providers Care Pharmaceutical Detailer Name Role Phone Dominique Carrasco DO AUTM Unavailable Maicol Scott MD Unavailable Problems Description No Information Available Social History Type Date Description Comments Sex Male ETOH Use Occasionally consumes alcohol Tobacco Use Start: Unknown Denies Smoking Smoking Status Reviewed: 10/24/20 Denies Smoking Allergies, Adverse Reactions, Alerts Description No Known Drug Allergies Medications Description No Active Medications Immunizations Description No Information Available Vital Signs Date Vital Result Comment 10/24/2020 8:59am BP Systolic 130 mmHg BP Diastolic 80 mmHg Heart Rate 68 /min Respiratory Rate 14 /min Body Temperature 97.6 F Height 70 inches 5'10" Weight 226.00 lb BMI (Body Mass Index) 32.4 kg/m2 [place] Body Weight 166 lb Weight 102.514 kg BSA (Body Surface Area) 2.20 m2 Results Description No Information Available Procedures Date Code Description Status 10/24/2020 15185 Office/Outpatient New Moderate M DM 45-59 Minutes Completed Medical Devices Description No Information Available Encounters Type Date Location Provider Dx Diagnosis Office Visit 10/24/2020 9:15a [facility] Zeenat Abarca DO M54.07 Panniculitis affecting regions of neck/bk, lumbosacr region L98.7 Excessive and redundant skin and subcutaneous tissue Assessments Date Code Description Provider 10/24/2020 M54.07 Panniculitis affecti ng regions of neck and back, lumbosacral region Zeenat Abarca DO 10/24/2020 L98.7 Excessive and redundant skin and subcutaneous tissue Zeenat Abarca DO Plan of Treatment No Information Available Functional Status Description No Information Available Mental Status Description No Information Available Referrals Refer to Reason for Referral Status Appt Date Zeenat Abarca D.O. PANNICULECTOMY Scheduled 10/24/2020 [facility] [address] [facility] [place], [place] [address] [phone]
--- OUTSIDE RECORDS SUMMARY | 2021-01-01 17:21 | CCD | Continuity of Care Document ---
Author Author Adolfo ABARCA DO Organization Unknown Address [address] [place] [address] Phone [phone] Care Team Providers Care Ruffler Name Role Phone Dominique Carrasco DO AUTM Unavailable Maicol Scott MD AUTM Unavailable Pattie AUTM [phone] Problems Description No Information Available Social History [...] lb BMI (Body Mass Index) 33.9 kg/m2 [place] Body Weight 166 lb Weight 107.050 kg BSA (Body Surface Area) 2.24 m2 10/24/2020 8:59am BP Systolic 130 mmHg BP Diastolic 80 mmHg Heart Rate 68 /min Respiratory Rate 14 /min Body Temperature 97.6 F Height 70 inches 5'10" Weight 226.00 lb BMI (Body Mass Index) 32.4 kg/m2 [place] Body Weight 166 lb Weight 102.514 kg BSA (Body Surface Area) 2.20 m2 Results Description No Information Available Procedures Date Code Description Status 10/24/2020 24040 Office/Outpatient New Moderate M DM 45-59 Minutes Completed Medical Devices Description No Information Available Encounters Type Date Location Provider Dx Diagnosis Office Visit 10/24/2020 9:15a [facility] Zeenat Abarca DO M54.07 Panniculitis affecting regions of neck/bk, lumbosacr region L98.7 Excessive and redundant skin and subcutaneous tissue Assessments Date Code Description Provider 12/10/2020 M54.07 Panniculitis affecti ng regions of neck and back, lumbosacral region Zeenat Abarca, DO 12/10/2020 L98.7 Excessive and redundant skin and subcutaneous tissue Zeenat Philip, DO 12/10/2020 Z01.818 Encounter for other preprocedura l examination Zeenat Abarca, DO 10/24/2020 M54.07 Panniculitis affecti ng regions of neck and back, lumbosacral region Zeenat Philip, DO 10/24/2020 L98.7 Excessive and redundant skin and subcutaneous tissue Zeenat Abarca, DO Plan of Treatment Future Appointment(s):* 12/25/2020 11:15 am - Zeenat Abarca DO at [facility] * 12/31/2020 11:30 am - Zeenat Abarca DO at [facility] 12/10/2020 - Zeenat Abarca DO* M54.07 Panniculitis affecting regions of neck and back, lumbosacral region* Comments:* Pre op visit today.Risks, benefits and alternatives of procedure discussed again. Post op period discussed. Risks include but not limited to bleeding, infection, seroma, asymmetry, delayed healing, damage to surrounding tissue, pain, unacceptable cosmetic result, deep vein thrombosis, and pulmonary embolism.All questions answered to patient's satisfaction.Ready for surgery.RTO post op. * L98.7 Excessive and redundant skin and subcutaneous tissue * Z01.818 Encounter for other preprocedural examination Functional Status Description No Information Available Mental Status Description No Information Available Referrals Refer to Reason for Referral Status Appt Date Zeenat Abarca D.O. PANNICULECTOMY Scheduled 10/24/2020 [facility] [address] [place] [address], [place] [address] [phone]
[2021-01-01] MEDS ORDERED: ceFAZolin 1GM VIAL (J0690 PER 500MG) IM ONE (17:50)
--- NOTE | 2021-01-01 17:55 | REP ---
INDICATION: s/p skin removal c drain placement, pls eval L lat swelling. COMPARISON: None. TECHNIQUE: Multiple ultrasound images of the area of interest were obtained. FINDINGS: There is a complex subcutaneous fluid collection measuring 6.4 x 4.5 x 2.9 cm. IMPRESSION: Complex subcutaneous fluid collection in the area of interest. <Electronically signed by Kaveh Templeton > 01/01/21 4552
[2021-01-01] MEDS ORDERED: PERC5TAB12 PO (18:05)
[2021-01-01 18:10] VITALS: BP 133/71
--- NOTE | 2021-01-01 18:30 | CR.PDOC ---
Plastic Surgery Consultation Date of Consultation 01/01/21 History and Physical CONSULT REPORT FOR: ER REASON FOR CONSULTATION: Post op pain increased, drain clogged. HISTORY OF PRESENT ILLNESS: This is a 20-year-old male status post extended panniculectomy done last week by me. Patient was seen in the office yesterday in follow-up and had serosanguineous drainage from both ELROY drains which exceeded the normal for them to be discharged. Today patient states that he experienced more pain on the left and left drain stopped draining altogether. He was advised by me to be evaluated by emergency room today. He denies any chest pain, shortness of breath, nausea, vomiting. PAST MEDICAL HISTORY: Denies PAST SURGICAL HISTORY: INCLUDES: Extended panniculectomy December 25, 2020 PREVIOUS ANESTHESIA REACTIONS: None ALLERGIES: Please see below. FAMILY HISTORY: Noncontributory HOME MEDICATIONS: Please see below. REVIEW OF SYSTEMS: GENERAL: Denies chills, reports weight gain,. HEENT: Denies blurred vision and double vision. Denies ear symptoms. Denies hoarseness. NECK: Denies any neck pain]. CARDIOVASCULAR: Denies chest pain and palpitations. MUSCULOSKELETAL: Denies arthralgias, back pain and thrombophlebitis. SKIN: Denies rash. NEUROLOGIC: Denies headache, stroke and transient ischemic attack. PSYCHIATRIC: Denies anxiety and depression. ENDOCRINE: Denies thyroid disease. HEMATOLOGY/ONCOLOGY: Denies bleeding or clotting disorder. HEART: Denies any chest pains, palpitations, paroxysmal dyspnea, orthopnea. PULMONARY: Denies chronic cough, dyspnea and wheezing. GASTROINTESTINAL: Denies rectal bleeding, family history of colon cancer, constipation, diarrhea, dysphagia, heartburn and jaundice. GENITOURINARY: Denies dysuria, frequency, hematuria and nocturia. ENDOCRINE: Denies polydipsia, polyphagia, polyuria, heat or cold intolerance. INFECTIOUS: Denies any recent upper respiratory tract infection, UTI, need for u se of antibiotics. NUTRITION: Reports good appetite. PHYSICAL EXAMINATION: VITALS SIGNS: Please see below. GENERAL APPEARANCE:Patient seen, laying in bed, awake, alert, and oriented. Comfortable, in no acute distress. SKIN: Warm and moist. HEENT: Normocephalic, atraumatic. [place] palpebral conjunctiva, anicteric sclerae. Lips and mucosa appear moist. NECK: Supple, no thyromegaly. No obvious jugular venous distention. LUNGS: Clear to auscultation bilaterally. No wheezing appreciated. HEART: No chest wall abnormalities. Regular rate and rhythm with no murmurs appreciated. ABDOMEN: Abdomen is soft, non-tender, non-distended. Lower abdominal incision intact with minor redness on the lateral part on the right side. Both ELROY drains are intact. Left ELROY drain with clot in it. Umbilicus viable with minor redness around it. No expanding hematomas. Reproducible surgical pain along the incisions present. EXTREMITIES: Extremities have no deformities. No edema identified. No calf tenderness. LABORATORY DATA: Please see below. IMAGING STUDIES: IMPRESSION: Ultrasound: Collection left lower abdomen 6 x 4 x 2.9 cm PLANS: H&H is stable. Both drains checked and unclogged. Both drains are draining freely now. Stable for discharge with p.o. antibiotics for 5 days and pain medicine (Percoc et) F/up in Plastic surgery after discharge. Findings and plan discussed with patient in details. He is restricted in driving or excessive exercise or heavy lifting. Continue with abdominal binder and cool compresses to the abdomen. Do not put ice directly on the skin. Vital Signs Vital Signs Date Time Temp Pulse Resp B/P (MAP) Pulse Ox O2 Delivery O2 Flow Rate FiO2 01/01/21 18:10 97.9 63 14 133/71 (91) 100 Room Air Laboratory Data Labs 24H Laboratory Tests 2 01/01/21 17:03: Immature Granulocyte % (Auto) 0.5, Neutrophils (%) (Auto) 67.9H, Lymphocytes (%) (Auto) 19.9L, Monocytes (%) (Auto) 8.6H, Eosinophils (%) (Auto) 3.0, Basophils (%) (Auto) 0.1, Neutrophils # (Auto) 5.4, Lymphocytes # (Auto) 1.6, Monocytes # (Auto) 0.7, Eosinophils # (Auto) 0.2, Basophils # (Auto) 0.0, Nucleated Red Blood Cells % (auto) 0.0 CBC/BMP Laboratory Tests 01/01/21 17:03 Home Medications Scheduled PRN Oxycodone HCl/Acetaminophen (Percocet 5-325 mg Tablet) 1 Each Tablet, 1 TAB PO Q6H PRN for PAIN Tramadol HCl (Tramadol HCl) 50 Mg Tablet, 1 TAB PO Q6HP PRN for pain Allergies Coded Allergies: No Known Allergies (Unverified , 12/18/20) CHACHA ABARCA DO Jan 01, 2021 18:29
== END 2021-01-01 18:18 | disposition home or self-care (01) ==
LOC: M ED 14:09
DX: L76.34 Postprocedural seroma of skin and subcutaneous tissue following other procedure (principal); G89.18 Other acute postprocedural pain
CPT/HCPCS: 36415; 76705; 85025; 96372; 99283; J0690